=== PATIENT | female | born 1995 | race Two or more races ===

== ENCOUNTER 2024-07-25 10:21 | Outpatient (AMB) | payer BC, MEDICAID, SELFPAY ==
--- NOTE | 2024-07-25 10:29 | OBCLNT_ITS ---
Vital Signs 07/25/24 10:48 Height 1.68 m Height Method Stated Weight 76.771 kg Weight Measurement Method Standing Scale BMI 27.3 BP 116/70 Blood Pressure Source Automatic Cuff Blood Pressure Location Right Upper Arm Position Sitting Respiration 17 Pulse 81 Pulse Source Monitor Temp 97.7 F Temp Source Temporal Artery Scan Pulse Oximetry (%) 98 Oxygen Delivery Method Room Air Allergies/Home Meds Allergies & Medications Allergies No Known Allergies Allergy (Verified 07/25/24 10:41) Medication Reconciliation No Known Home Medications 07/25/24 [History Confirmed 07/25/24] Intake Visit Data Collection New Patient or Established: New Patient (never been to [facility]) Reason for Visit:: OBI / TRANSFER Seen by Clinical Staff ONLY (RN/MA): No Coal Inspector Required: No Do You Feel Safe at Home: Yes Authorities Contacted: N/A PCP or OBGYN visit in last 3 months: No Hx Now: Yes Are you currently on any form of Control: No Pain Present Currently: No Pain Scale Used: Thibodeaux-Mccormick/Numerical Pain scale:: 0 Smoking Status Smoking Status: Never smoker Questionnaires Covid-19 Vaccine Questionnaire Has patient been vacinated for Covid-19 Have you been vacinated for Covid-19: Yes PHQ-9 PHQ-2 Over the last 2 weeks, how often have you been bothered by any of the following problems? 1. Little interest or pleasure in doing things: not at all 2. Feeling down, depressed, or hopeless: not at all Total score: 0 PHQ-9 3. Trouble falling or staying asleep, or sleeping too much: Not at all 4. Feeling tired or having little energy: Not at all 5. Poor appetite or overeating: Not at all 6. Feeling bad about yourself - or that you are a failure or have let yourself or your family down: Not at all 7. Trouble concentrating on things, such as reading the newspaper or watching television: Not at all 8. Moving or speaking so slowly that other people could have noticed? - Or the opposite - being so fidgety or restless that you have been moving around a lot more than usual: not at all 9. Thoughts that you would be better off or of hurting yourself in some way: Not at all Total score: 0 If you checked off any problems, how difficult have these problems made it for you to do your work, take care of things at home, or get along with other people?: not difficult at all Source: Developed by Drs. Mk Teixeira, Mindi Herrera, Jeremie Wong and colleagues, with an educational alicia from [employer]. Depression screen completed yes Social History Living Situation History Marital Status: Single Lives With: Family Housing: House Tobacco History Smoking Status: Never smoker Second Hand Smoke Exposure: No Alcohol History Alcohol Intake: Never Domestic Abuse History Do You Feel Safe at Home: Yes History of Present Illness HPI Narrative 29-year-old 3 para 2 for OB transfer of care. Patient's been following Dr. Olsen at [facility]. Her last period December 25, 2023. Estimated due date September 30, 2024. First ultrasound was March 31 patient was 13 weeks and this confirmed dates. Then she had an anatomy scan in June that also confirm dates. Denies social habits. Denies surgery. Denies chronic illness. Patient reports movement. Denies leaking or bleeding. Patient is O+, antibody screen negative, RPR nonreactive, rubella immune, hepatitis B negative, hep C negative, HIV negative, GC and Chlamydia were both negative. Her hemoglobin A1c was 5.7. Her NIPT AFP and carrier screens were both negative. A1c is 5.7. And her 1 hour Glucola was 155 OB Initial Visit OB Flowsheet OB Flowsheet Initial Weight: Not Recorded Date -?-?-?-?-?-?-?-?-?-?-?-?- EGA Weight BP Alb Glu CTX Pres Fundal ht FHR Mov Dilation Station Effacement Hx Notes Visit Note 07/25/24 -?-?-?-?-?-?-?-?-?-?-?-?- 30w 3d 76.771 kg 116/70 absent cephalic 32 145 active 29-year-old 3 para 2 for OB transfer of care. 31 weeks 3 days today. Patient reports movement. Denies leaking or bleeding. Denies labor contractions. sono for growth NV, discuss ptl precaution. increase fluid. rtc 3 week obc Menstrual History Menstrual reliability: definite Flow: normal Menstrual regularity: regular Monthly: Yes Age at menarche: 11 On control pills at conception: No OB History : 5 Para: 2 Hx # Pregnancies: 0 Hx Total # of Abortions (Spontaneous & Elective): 2 # of Living Children: 2 Delivery History 1st : Child's name: NAOMI JACKSON date: 08/23/17 sex: female Gestational age at delivery (weeks): 41 Delivery type: vaginal weight (lbs): 3628.739 g weight (oz): 311.845 g History of depression before or after : No 2nd : Child's name: WILBER JACKSON date: 06/02/22 sex: female Gestational age at delivery (weeks): 40 Delivery type: vaginal weight (lbs): 3628.739 g weight (oz): 226.796 g History of depression before or after : No Infection History & Risk Evaluation History of STDs: none HIV risk evaluation: low risk Hepatitis B risk evaluation: low risk Patient or partner has history of Genital Herpes: No Varicella/chicken pox status: immunized Genetic Screening & History Genetic Screening/Teratology Counseling - Includes patient, baby's father, or anyone in either family with: 1. Patient's age 35 years or older as of estimated date of delivery: No 2. Thalassemia (Sri Lankan, Azeri, Mediterranean, or Background); MCV less than 80: No 3. Neural Tube Defect (Meningomyelocele, Spina Bifida, or Anencephaly): No 4. Congenital Heart Defect: No 5. Down Syndrome: No 6. Elmo-Sachs (Ashkenazi Oriental Orthodox, Cajun, Korean Mcdonald): No 7. Edagrdo Disease (Ashkenazi Oriental Orthodox): No 8. Familial Dysautonomia (Ashkenazi Oriental Orthodox): No 9. Sickle Cell Disease or Trait (): No 10. Hemophilia or other blood disorders: No 11. Muscular Dystrophy: No 12. Cystic Fibrosis: No 13. Bassem's Chorea: No 14. Mental Retardation/Autism: No 15. Other inherited genetic or chromosomal disorder: No 16. Maternal Metabolic Disorder (EG,TYPE 1 Diabetes, PKU): No 17. Patient or baby's father had a child with defects not listed above: No 18. Recurrent loss or a stillbirth: No 19. Medications (including supplements, vitamins, herbs or otc drugs)/illicit/ recreational drugs/alcohol since last menstrual period: No 20. Any other: No Infection History 1. Live with someone with TB or exposed to TB: No 2. Rash or viral illness since last menstrual period: No 3. Hepatitis B,C: No Other (see comments) Source: [employer] Review of Systems Review of Systems Systems Reviewed: All systems reviewed, normal except as documented Exam General Limitations: no limitations General Appearance: alert, in no apparent distress, comfortable, cooperative, healthy appearing, well developed and well groomed Head Head exam: atraumatic, normocephalic and normal inspection Chest Chest inspection: Present normal inspection and symmetric chest wall rise Resp Respiratory exam: Present normal lung sounds bilaterally Card Cardiovascular exam: Present regular rate, normal rhythm and normal heart sounds Abdominal Abdominal exam: Present soft and normal bowel sounds Psych Psychiatric exam: Present normal affect and normal mood Office Procedures OB Clinic LOC & Office Proc's Nursing/Assessment Patient Status: Initial/New Patient OB Clinic Nursing Assessment: Medication Reconciliation, Update PMH in EMR and Vital Signs OB Clinic Coordination of Care: Complex Care and Chronic Disease 1-5, Consent,records obtained, informed consent, Education Simp Pt/Fam, Lab and Imaging orders and Staff clarify orders Special Needs: Heart tones New Patient Charge New Patient Point Assignment: [id number] New Patient Point Charge: SUPPLY CHAIN LOGISTICS MANAGER Level 4 (9998-1139) Assessment & Plan Diagnosis / Problem List (1) Encounter for supervision of normal first , second trimester: Status: Acute Plan discuss ptl precaution, hydrate. f/u sono NV for growth. fkc bid. discuss ER precaution, rtc 3 week obc Additional Plan Follow Up: 3 Weeks (obc)
[2024-07-25 10:48] VITALS: BP 116/70; PULSE 81; RESP 17; TEMP 36.5; O2SAT 98; BMI 27.3
== END 2024-07-25 11:05 | disposition home or self-care (01) ==
LOC: HODSOBC 10:21
PROVIDERS: Supervising Provider Advanced Practice Midwife; Visit Provider Advanced Practice Midwife
DX: Z34.03 Encounter for supervision of normal first pregnancy, third trimester (principal); Z3A.30 30 weeks gestation of pregnancy
CPT/HCPCS: 99204; G0463

== ENCOUNTER 2024-08-18 09:47 | Outpatient (AMB) | payer BC, MEDICAID, SELFPAY ==
[2024-08-18 10:01] VITALS: BP 123/75; PULSE 87; RESP 17; TEMP 36.4; O2SAT 97; BMI 27.0
--- NOTE | 2024-08-18 10:01 | OBCLNT_ITS ---
Vital Signs 08/18/24 10:01 Height 1.68 m Height Method Stated Weight 76.317 kg Weight Measurement Method Standing Scale BMI 27.0 BP 123/75 Blood Pressure Source Automatic Cuff Blood Pressure Location Right Upper Arm Position Sitting Respiration 17 Pulse 87 Pulse Source Monitor Temp 97.5 F Temp Source Temporal Artery Scan Pulse Oximetry (%) 97 Oxygen Delivery Method Room Air Allergies/Home Meds Allergies & Medications Allergies No Known Allergies Allergy (Verified 08/18/24 10:01) Medication Reconciliation No Known Home Medications 07/25/24 [History Confirmed 08/18/24] Intake Visit Data Collection New Patient or Established: Established Patient (seen at [facility] within 3 years) Reason for Visit:: OBC Regional Account Director Required: No Do You Feel Safe at Home: Yes Authorities Contacted: N/A PCP or OBGYN visit in last 3 months: Yes Date of Last PCP or OBGYN visit: 07/25/24 Hx Now: No Are you currently on any form of Control: No Pain Present Currently: No Pain Scale Used: Thibodeaux-Mccormick/Numerical Pain scale:: 0 Smoking Status Smoking Status: Never smoker Questionnaires Covid-19 Vaccine Questionnaire Has patient been vacinated for Covid-19 Have you been vacinated for Covid-19: No PHQ-9 PHQ-2 Over the last 2 weeks, how often have you been bothered by any of the following problems? 1. Little interest or pleasure in doing things: not at all 2. Feeling down, depressed, or hopeless: not at all Total score: 0 PHQ-9 3. Trouble falling or staying asleep, or sleeping too much: Not at all 4. Feeling tired or having little energy: Not at all 5. Poor appetite or overeating: Not at all 6. Feeling bad about yourself - or that you are a failure or have let yourself or your family down: Not at all 7. Trouble concentrating on things, such as reading the newspaper or watching television: Not at all 8. Moving or speaking so slowly that other people could have noticed? - Or the opposite - being so fidgety or restless that you have been moving around a lot more than usual: not at all 9. Thoughts that you would be better off or of hurting yourself in some way: Not at all Total score: 0 If you checked off any problems, how difficult have these problems made it for you to do your work, take care of things at home, or get along with other people?: not difficult at all Source: Developed by Drs. Mk Teixeira, Mindi Herrera, Jeremie Wong and colleagues, with an educational alicia from [employer]. Depression screen completed yes Social History Living Situation History Marital Status: Lives With: Family Housing: House Tobacco History Smoking Status: Never smoker Second Hand Smoke Exposure: No Alcohol History Alcohol Intake: Never Domestic Abuse History Do You Feel Safe at Home: Yes Care OB Visit Log OB Flowsheet Initial Weight: Not Recorded Date -?-?-?-?-?-?-?-?-?-?-?-?- EGA Weight BP Alb Glu CTX Pres Fundal ht FHR Mov Dilation Station Effacement Hx Notes Visit Note 07/25/24 -?-?-?-?-?-?-?-?-?-?-?-?- 30w 3d 76.771 kg 116/70 absent cephalic 32 145 active 29-year-old 3 para 2 for OB transfer of care. 31 weeks 3 days today. Patient reports movement. Denies leaking or bleeding. Denies labor contractions. sono for growth NV, discuss ptl precaution. increase fluid. rtc 3 week obc 08/18/24 -?-?-?-?-?-?-?-?-?-?-?-?- 33w 6d 76.317 kg 123/75 absent cephalic 33 145 active fetus active, denies leaking,bleeding or UC, doing well discuss GDM diet. ptl precaution, increase fluid, fkc bid. rtc 2 week OBC, refused TDAP JOHNATHAN Calculator Estimated Delivery Date Method Current WG Current Estimate 09/30/24 LMP (Certain) 33w 6d Other Estimates 09/30/24 Ultrasound #1 33w 6d 09/25/24 Ultrasound #2 34w 4d Notes Visit Date: 08/18/24 Last Updated by: Lynn Moore CNM 1 hr gtt elevated, 3 hr gtt: 1 value high/gdm diet Visit Date: 07/25/24 Last Updated by: Lynn Moore CNM 29 yo LMP 12/24/24. EDC 09/30/24. sono 03/31/24:13wk, EDC 09/30/24. O+,abs-,rpr;;nr, rub imm, hbsag-, hiv-,HC-, GC/CT-. rub IMM, A1c: 5.7, Office Procedures OB Clinic LOC & Office Proc's Nursing/Assessment Patient Status: Established Patient OB Clinic Nursing Assessment: Medication Reconciliation, Update PMH in EMR and Vital Signs OB Clinic Coordination of Care: Complex Care and Chronic Disease 1-5, Consent,records obtained, informed consent, Education Simp Pt/Fam and Staff clarify orders Special Needs: Heart tones Established Patient Charge Established Patient Point Assignment: 115 Established Patient Point Charge: EP Level 3 (80-115) Assessment & Plan Diagnosis / Problem List (1) Encounter for supervision of normal in multigravida in third trimester: Status: Acute Plan Discussed 3-hour GTT results. Reviewed labor precautions. Patient has a follow-up maternal- medicine in September. I reviewed GDM diet and advised patient to continue with that to walk 40 minutes a day. Increase fluids. Return in 2 weeks OB check. Patient declined Tdap today Additional Plan Follow Up: 2 Weeks (obc)
== END 2024-08-18 10:27 | disposition home or self-care (01) ==
LOC: HODSOBC 09:47
PROVIDERS: Supervising Provider Advanced Practice Midwife; Visit Provider Advanced Practice Midwife
DX: O09.893 Supervision of other high risk pregnancies, third trimester (principal); O24.410 Gestational diabetes mellitus in pregnancy, diet controlled; Z3A.33 33 weeks gestation of pregnancy; Z28.21 Immunization not carried out because of patient refusal
CPT/HCPCS: 99213; G0463

== ENCOUNTER 2024-09-01 10:24 | Outpatient (AMB) | payer BC, MEDICAID, SELFPAY ==
[2024-09-01 10:54] VITALS: BP 122/81; PULSE 77; RESP 17; TEMP 36.7; O2SAT 96; BMI 27.7
--- NOTE | 2024-09-01 10:54 | OBCLNT_ITS ---
Vital Signs 09/01/24 10:54 Height 1.68 m Height Method Stated Weight 78.188 kg Weight Measurement Method Standing Scale BMI 27.7 BP 122/81 Blood Pressure Source Automatic Cuff Blood Pressure Location Right Upper Arm Position Sitting Respiration 17 Pulse 77 Pulse Source Monitor Temp 98.1 F Temp Source Temporal Artery Scan Pulse Oximetry (%) 96 Oxygen Delivery Method Room Air Allergies/Home Meds Allergies & Medications Allergies No Known Allergies Allergy (Verified 09/01/24 10:55) Medication Reconciliation No Known Home Medications 07/25/24 [History Confirmed 09/01/24] Intake Visit Data Collection New Patient or Established: Established Patient (seen at [facility] within 3 years) Reason for Visit:: OBC / GBS Seen by Clinical Staff ONLY (RN/MA): No Hydro Generation Supervisor Required: No Do You Feel Safe at Home: Yes Authorities Contacted: N/A PCP or OBGYN visit in last 3 months: Yes Date of Last PCP or OBGYN visit: 08/18/24 Hx Now: Yes Are you currently on any form of Control: No Pain Present Currently: No Pain Scale Used: Thibodeaux-Mccormick/Numerical Pain scale:: 0 Smoking Status Smoking Status: Never smoker Questionnaires Covid-19 Vaccine Questionnaire Has patient been vacinated for Covid-19 Have you been vacinated for Covid-19: Yes PHQ-9 PHQ-2 Over the last 2 weeks, how often have you been bothered by any of the following problems? 1. Little interest or pleasure in doing things: not at all 2. Feeling down, depressed, or hopeless: not at all Total score: 0 PHQ-9 3. Trouble falling or staying asleep, or sleeping too much: Not at all 4. Feeling tired or having little energy: Not at all 5. Poor appetite or overeating: Not at all 6. Feeling bad about yourself - or that you are a failure or have let yourself or your family down: Not at all 7. Trouble concentrating on things, such as reading the newspaper or watching television: Not at all 8. Moving or speaking so slowly that other people could have noticed? - Or the opposite - being so fidgety or restless that you have been moving around a lot more than usual: not at all 9. Thoughts that you would be better off or of hurting yourself in some way : Not at all Total score: 0 If you checked off any problems, how difficult have these problems made it for you to do your work, take care of things at home, or get along with other people?: not difficult at all Source: Developed by Drs. Mk Teixeira, Mindi Herrera, Jeremie Wong and colleagues, with an educational alicia from [employer]. Depression screen completed yes Social History Living Situation History Marital Status: Lives With: Family Housing: House Tobacco History Smoking Status: Never smoker Second Hand Smoke Exposure: No Alcohol History Alcohol Intake: Never Domestic Abuse History Do You Feel Safe at Home: Yes Care OB Visit Log OB Flowsheet Initial Weight: Not Recorded Date -?-?-?-?-?-?-?-?-?-?-?-?- EGA Weight BP Alb Glu CTX Pres Fundal ht FHR Mov Dilation Station Effacement Hx Notes Visit Note 07/25/24 -?-?-?-?-?-?-?-?-?-?-?-?- 30w 3d 76.771 kg 116/70 absent cephalic 32 145 active 29-year-old 3 para 2 for OB transfer of care. 31 weeks 3 days today. Patient reports movement. Denies leaking or bleeding. Denies labor contractions. sono for growth NV, discuss ptl precaution. increase fluid. rtc 3 week obc 08/18/24 -?-?-?-?-?-?-?-?-?-?-?-?- 33w 6d 76.317 kg 123/75 absent cephalic 33 145 active fetus active, denies leaking,bleeding or UC, doing well discuss GDM diet. ptl precaution, increase fluid, fkc bid. rtc 2 week OBC, refused TDAP 09/01/24 -?-?-?-?-?-?-?-?-?-?-?-?- 35w 6d 78.188 kg 122/81 occasional cephalic 35 145 active Reports movement. Denies leaking. Denies bleeding. Denies cough contractions. Increased pressure. No other OB complaints today. Continue GDM diet. Discussed labor precautions and kick counts twice a day. GBS today. Return in 1 week OB check JOHNATHAN Calculator Estimated Delivery Date Method Current WG Current Estimate 09/30/24 LMP (Certain) 35w 6d Other Estimates 09/30/24 Ultrasound #1 35w 6d 09/25/24 Ultrasound #2 36w 4d Notes Visit Date: 09/01/24 Last Updated by: Lynn Moore CNM 29 yo . LMP 12/24/24. EDC 09/30. 1s sono: 03/31/24: 13w6. edc: 09/30, 06/21: IUP 26w2. EDC: 09/30. ob panel: O+,abs-, rpr;;nr, rub imm, hbsag-,hiv-,hc-,gc/ct-, 1 hr high. 3 hr gtt: normal NIPT/AFP, carrier screen- Visit Date: 08/18/24 Last Updated by: Lynn Moore CNM 1 hr gtt elevated, 3 hr gtt: 1 value high/gdm diet Visit Date: 07/25/24 Last Updated by: Lynn Moore CNM 29 yo LMP 12/24/24. EDC 09/30/24. sono 03/31/24:13wk, EDC 09/30/24. O+,abs-,rpr;;nr, rub imm, hbsag-, hiv-,HC-, GC/CT-. rub IMM, A1c: 5.7, Office Procedures OB Clinic LOC & Office Proc's Nursing/Assessment Patient Status: Established Patient OB Clinic Nursing Assessment: Medication Reconciliation, Update PMH in EMR and Vital Signs OB Clinic Coordination of Care: Complex Care and Chronic Disease 1-5, Consent,records obtained, informed consent, Education Simp Pt/Fam, Lab and Imaging orders and Staff clarify orders Special Needs: Heart tones Established Patient Charge Established Patient Point Assignment: 130 Established Patient Point Charge: EP Level 4 (120-155) Assessment & Plan Diagnosis / Problem List (1) Encounter for supervision of normal in multigravida in third trimester: Status: Acute Plan GBS today. Discussed labor precautions. Discussed kick count twice a day. Continue GDM diet and exercise. Increase fluids. Continue vitamins. Return a week OB check Additional Plan Follow Up: 1 Week (obc)
== END 2024-09-01 11:20 | disposition home or self-care (01) ==
LOC: HODSOBC 10:24
PROVIDERS: Supervising Provider Advanced Practice Midwife; Visit Provider Advanced Practice Midwife
DX: Z34.83 Encounter for supervision of other normal pregnancy, third trimester (principal); Z3A.35 35 weeks gestation of pregnancy; Z36.85 Encounter for antenatal screening for Streptococcus B
CPT/HCPCS: 99214; G0463

== ENCOUNTER 2024-09-06 08:20 | Outpatient (AMB) | payer BC, MEDICAID, SELFPAY ==
[2024-09-06 08:36] VITALS: BP 113/72; PULSE 84; RESP 17; TEMP 36.6; O2SAT 97; BMI 28.1
--- NOTE | 2024-09-06 08:36 | OBCLNT_ITS ---
Vital Signs 09/06/24 08:36 Height 1.68 m Height Method Stated Weight 79.549 kg Weight Measurement Method Standing Scale BMI 28.1 BP 113/72 Blood Pressure Source Automatic Cuff Blood Pressure Location Right Upper Arm Position Sitting Respiration 17 Pulse 84 Pulse Source Monitor Temp 97.8 F Temp Source Temporal Artery Scan Pulse Oximetry (%) 97 Oxygen Delivery Method Room Air Allergies/Home Meds Allergies & Medications Allergies No Known Allergies Allergy (Verified 09/06/24 08:37) Medication Reconciliation No Known Home Medications 07/25/24 [History Confirmed 09/06/24] Intake Visit Data Collection New Patient or Established: Established Patient (seen at [facility] within 3 years) Reason for Visit:: OBC Seen by Clinical Staff ONLY (RN/MA): No Book Jacket Cover Machine Operator Required: No Do You Feel Safe at Home: Yes Authorities Contacted: N/A PCP or OBGYN visit in last 3 months: Yes Date of Last PCP or OBGYN visit: 09/01/24 Hx Now: Yes Are you currently on any form of Control: No Pain Present Currently: No Pain Scale Used: Thibodeaux-Mccormick/Numerical Pain scale:: 0 Smoking Status Smoking Status: Never smoker Questionnaires Covid-19 Vaccine Questionnaire Has patient been vacinated for Covid-19 Have you been vacinated for Covid-19: No PHQ-9 PHQ-2 Over the last 2 weeks, how often have you been bothered by any of the following problems? 1. Little interest or pleasure in doing things: not at all 2. Feeling down, depressed, or hopeless: not at all Total score: 0 PHQ-9 3. Trouble falling or staying asleep, or sleeping too much: Not at all 4. Feeling tired or having little energy: Not at all 5. Poor appetite or overeating: Not at all 6. Feeling bad about yourself - or that you are a failure or have let yourself or your family down: Not at all 7. Trouble concentrating on things, such as reading the newspaper or watching television: Not at all 8. Moving or speaking so slowly that other people could have noticed? - Or the opposite - being so fidgety or restless that you have been moving around a lot more than usual: not at all 9. Thoughts that you would be better off or of hurting yourself in some way: Not at all Total score: 0 If you checked off any problems, how difficult have these problems made it for you to do your work, take care of things at home, or get along with other people?: not difficult at all Source: Developed by Drs. Mk Teixeira, Mindi Herrera, Jeremie Wong and colleagues, with an educational alicia from [email or web address]. Depression screen completed yes Social History Living Situation History Marital Status: Lives With: Family Housing: House Tobacco History Smoking Status: Never smoker Second Hand Smoke Exposure: No Alcohol History Alcohol Intake: Never Domestic Abuse History Do You Feel Safe at Home: Yes Care OB Visit Log OB Flowsheet Initial Weight: Not Recorded Date -?-?-?-?-?-?-?-?-?-?-?-?- EGA Weight BP Alb Glu CTX Pres Fundal ht FHR Mov Dilation Station Effacement Hx Notes Visit Note 07/25/24 -?-?-?-?-?-?-?-?-?-?-?-?- 30w 3d 76.771 kg 116/70 absent cephalic 32 145 active 29-year-old 3 para 2 for OB transfer of care. 31 weeks 3 days today. Patient reports movement. Denies leaking or bleeding. Denies labor contractions. sono for growth NV, discuss ptl precaution. increase fluid. rtc 3 week obc 08/18/24 -?-?-?-?-?-?-?-?-?-?-?-?- 33w 6d 76.317 kg 123/75 absent cephalic 33 145 active fetus active, denies leaking,bleeding or UC, doing well discuss GDM diet. ptl precaution, increase fluid, fkc bid. rtc 2 week OBC, refused TDAP 09/01/24 -?-?-?-?-?-?-?-?-?-?-?-?- 35w 6d 78.188 kg 122/81 occasional cephalic 35 145 active Reports movement. Denies leaking. Denies bleeding. Denies cough contractions. Increased pressure. No other OB complaints today. Continue GDM diet. Discussed labor precautions and kick counts twice a day. GBS today. Return in 1 week OB check 09/06/24 -?-?-?-?-?-?-?-?-?-?-?-?- 36w 4d 79.549 kg 113/72 occasional cephalic 36 145 active Increased pressure. Baby active. Denies leaking. Denies bleeding. Denies contractions. Like for precaut ions discussed with patient. Comfort measures were present. Reviewed kick count twice daily. Discussed danger signs symptoms signs of ER precautions. Return week OB check JOHNATHAN Calculator Estimated Delivery Date Method Current WG Current Estimate 09/30/24 LMP (Certain) 36w 4d Other Estimates 09/30/24 Ultrasound #1 36w 4d 09/25/24 Ultrasound #2 37w 2d Notes Visit Date: 09/06/24 Last Updated by: Lynn Moore CNM GBS- 09/06/24 Visit Date: 09/01/24 Last Updated by: Lynn Moore CNM 29 yo . LMP 12/24/24. EDC 09/30. 1s sono: 03/31/24: 13w6. edc: 09/30, 06/21: IUP 26w2. EDC: 09/30. ob panel: O+,abs-, rpr;;nr, rub imm, hbsag-,hiv-,hc-,gc/ct-, 1 hr high. 3 hr gtt: normal NIPT/AFP, carrier screen- Visit Date: 08/18/24 Last Updated by: Lynn Moore CNM 1 hr gtt elevated, 3 hr gtt: 1 value high/gdm diet Visit Date: 07/25/24 Last Updated by: Lynn Moore CNM 29 yo LMP 12/24/24. EDC 09/30/24. sono 03/31/24:13wk, EDC 09/30/24. O+,abs-,rpr;;nr, rub imm, hbsag-, hiv-,HC-, GC/CT-. rub IMM, A1c: 5.7, Office Procedures OB Clinic LOC & Office Proc's Nursing/Assessment Patient Status: Established Patient OB Clinic Nursing Assessment: Medication Reconciliation, Update PMH in EMR and Vital Signs OB Clinic Coordination of Care: Complex Care and Chronic Disease 1-5, Consent,records obtained, informed consent, Education Simp Pt/Fam and Staff clarify orders Special Needs: Heart tones Established Patient Charge Established Patient Point Assignment: 115 Established Patient Point Charge: EP Level 3 (80-115) Assessment & Plan Diagnosis / Problem List (1) Encounter for supervision of normal in multigravida in third trimester: Status: Acute Plan Discussed labor precautions. Kick count twice daily. Discussed danger signs symptoms and ER precautions. Return in a week OB check Additional Plan Follow Up: 1 Week (obc)
== END 2024-09-06 08:57 | disposition home or self-care (01) ==
LOC: HODSOBC 08:20
PROVIDERS: Supervising Provider Advanced Practice Midwife; Visit Provider Advanced Practice Midwife
DX: Z34.83 Encounter for supervision of other normal pregnancy, third trimester (principal); Z3A.36 36 weeks gestation of pregnancy
CPT/HCPCS: 99213; G0463

== ENCOUNTER 2024-09-14 08:53 | Outpatient (AMB) | payer BC, MEDICAID, SELFPAY ==
[2024-09-14 09:09] VITALS: BP 132/80; PULSE 74; RESP 17; TEMP 36.5; O2SAT 97; BMI 28.5
--- NOTE | 2024-09-14 09:09 | OBCLNT_ITS ---
Vital Signs 09/14/24 09:09 Height 1.68 m Height Method Measured Weight 80.739 kg Weight Measurement Method Standing Scale BMI 28.5 BP 132/80 H Blood Pressure Source Automatic Cuff Blood Pressure Location Right Upper Arm Position Sitting Respiration 17 Pulse 74 Pulse Source Monitor Temp 97.7 F Temp Source Temporal Artery Scan Pulse Oximetry (%) 97 Oxygen Delivery Method Room Air Allergies/Home Meds Allergies & Medications Allergies No Known Allergies Allergy (Verified 09/14/24 09:10) Medication Reconciliation No Known Home Medications 07/25/24 [History Confirmed 09/14/24] Intake Visit Data Collection New Patient or Established: Established Patient (seen at [facility] within 3 years) Reason for Visit:: OBC Consent obtained for Telemed Visit: No Seen by Clinical Staff ONLY (RN/MA): No Hydro Plant Operator Required: No Do You Feel Safe at Home: Yes Authorities Contacted: N/A PCP or OBGYN visit in last 3 months: Yes Date of Last PCP or OBGYN visit: 09/06/24 Hx Now: Yes Are you currently on any form of Control: No Pain Present Currently: No Pain Scale Used: Thibodeaux-Mccormick/Numerical Pain scale:: 0 Smoking Status Smoking Status: Never smoker Questionnaires Covid-19 Vaccine Questionnaire Has patient been vacinated for Covid-19 Have you been vacinated for Covid-19: No PHQ-9 PHQ-2 Over the last 2 weeks, how often have you been bothered by any of the following problems? 1. Little interest or pleasure in doing things: not at all PHQ-9 8. Moving or speaking so slowly that other people could have noticed? - Or the opposite - being so fidgety or restless that you have been moving around a lot more than usual: not at all Source: Developed by Drs. Mk Teixeira, Mindi Herrera, Jeermie Wong and colleagues, with an educational alicia from [employer]. Social History Living Situation History Lives With: Family Housing: House Tobacco History Smoking Status: Never smoker Second Hand Smoke Exposure: No Alcohol History Alcohol Intake: Never Domestic Abuse History Do You Feel Safe at Home: Yes Care OB Visit Log OB Flowsheet Initial Weight: Not Recorded Date -?-?-?-?-?-?-?-?-?-?-?-?- EGA Weight BP Alb Glu CTX Pres Fundal ht FHR Mov Dilation Station Effacement Hx Notes Visit Note 07/25/24 -?-?--?-?-?-?-?-?-?-?-?-?- 30w 3d 76.771 kg 116/70 absent cephalic 32 145 active 29-year-old 3 para 2 for OB transfer of care. 31 weeks 3 days today. Patient reports movement. Denies leaking or bleeding. Denies labor contractions. sono for growth NV, discuss ptl precaution. increase fluid. rtc 3 week obc 08/18/24 -?--?-?-?-?-?-?-?-?-?-?-?- 33w 6d 76.317 kg 123/75 absent cephalic 33 145 active fetus active, denies leaking,bleeding or UC, doing well discuss GDM diet. ptl precaution, increase fluid, fkc bid. rtc 2 week OBC, refused TDAP 09/01/24 -?-?-?-?-?-?-?-?-?-?-?-?- 35w 6d 78.188 kg 122/81 occasional cephalic 35 145 active Reports movement. Denies leaking. Denies bleeding. Denies cough contractions. Increased pressure. No other OB complaints today. Continue GDM diet. Discussed labor precautions and kick counts twice a day. GBS today. Return in 1 week OB check 09/06/24 -?-?-?-?-?-?-?-?-?-?-?-?- 36w 4d 79.549 kg 113/72 occasional cephalic 36 145 active Increased pressure. Baby active. Denies leaking. Denies bleeding. Denies contractions. Like for precaut ions discussed with patient. Comfort measures were present. Rubia fernandez kick count twice daily. Discussed danger signs symptoms signs of ER precautions. Return week OB check 09/14/24 -?-?-?-?-?-?-?-?-?-?-?-?- 37w 5d 80.739 kg 132/80 occasional cephalic 37 147 active 1 -3 25 increased presure and mucous with some bleeding, fetus active, denies leaking or. irreg uc discuss labor pr ecaution, fkc bid. comfort measure and ER precaution JOHNATHAN Calculator Estimated Delivery Date Method Current WG Current Estimate 09/30/24 LMP (Certain) 37w 5d Other Estimates 09/30/24 Ultrasound #1 37w 5d 09/25/24 Ultrasound #2 38w 3d Notes Visit Date: 09/14/24 Last Updated by: Lynn Moore CNM 29 yo LMP 12/24/20, EDC: 09/30/24, O+,abs-,rpr;;nr, rub imm, hbsag-,hiv-,HC-, gc/ct-, GBS-, carrier screen and NIPT- Visit Date: 09/06/24 Last Updated by: Lynn Moore CNM GBS- 09/06/24 Visit Date: 09/01/24 Last Updated by: Lynn Moore CNM 29 yo . LMP 12/24/24. EDC 09/30. 1s sono: 03/31/24: 13w6. edc: 09/30, 06/21: IUP 26w2. EDC: 09/30. ob panel: O+,abs-, rpr;;nr, rub imm, hbsag-,hiv-,hc-,gc/ct-, 1 hr high. 3 hr gtt: normal NIPT/AFP, carrier screen- Visit Date: 08/18/24 Last Updated by: Lynn Moore CNM 1 hr gtt elevated, 3 hr gtt: 1 value high/gdm diet Visit Date: 07/25/24 Last Updated by: Lynn Moore CNM 29 yo LMP 12/24/24. EDC 09/30/24. sono 03/31/24:13wk, EDC 09/30/24. O+,abs-,rpr;;nr, rub imm, hbsag-, hiv-,HC-, GC/CT-. rub IMM, A1c: 5.7, Office Procedures OB Clinic LOC & Office Proc's Nursing/Assessment Patient Status: Established Patient OB Clinic Nursing Assessment: Medication Reconciliation, Update PMH in EMR and Vital Signs OB Clinic Coordination of Care: Complex Care and Chronic Disease 1-5, Consent,records obtained, informed consent, Education Simp Pt/Fam and 4+ Authorizations needed Special Needs: Heart tones Established Patient Charge Established Patient Point Assignment: 130 Established Patient Point Charge: EP Level 4 (120-155) Assessment & Plan Diagnosis / Problem List (1) Encounter for supervision of normal in multigravida in third trimester: Status: Acute Plan discuss labor precaution, fkc bid. discuss ER precaution, increase fluid. rtc 1 week obc Additional Plan Follow Up: 1 Week (obc)
== END 2024-09-14 09:35 | disposition home or self-care (01) ==
LOC: HODSOBC 08:53
PROVIDERS: Supervising Provider Advanced Practice Midwife; Visit Provider Advanced Practice Midwife
DX: Z34.83 Encounter for supervision of other normal pregnancy, third trimester (principal); Z3A.37 37 weeks gestation of pregnancy
CPT/HCPCS: 99214; G0463

== ENCOUNTER 2024-09-30 12:55 | Outpatient (AMB) | payer BC, MEDICAID, SELFPAY ==
[2024-09-30 13:11] VITALS: BP 138/81; PULSE 82; RESP 17; TEMP 36.6; O2SAT 97; BMI 29.5
--- NOTE | 2024-09-30 13:11 | OBCLNT_ITS ---
Vital Signs 09/30/24 13:11 Height 1.68 m Height Method Measured Weight 83.178 kg Weight Measurement Method Standing Scale BMI 29.5 BP 138/81 H Blood Pressure Source Automatic Cuff Blood Pressure Location Right Upper Arm Position Sitting Respiration 17 Pulse 82 Pulse Source Monitor Temp 97.8 F Temp Source Temporal Artery Scan Pulse Oximetry (%) 97 Oxygen Delivery Method Room Air Allergies/Home Meds Allergies & Medications Allergies No Known Allergies Allergy (Verified 09/30/24 13:12) Medication Reconciliation No Known Home Medications 07/25/24 [History Confirmed 09/30/24] Intake Visit Data Collection New Patient or Established: Established Patient (seen at [facility] within 3 years) Reason for Visit:: OBC Consent obtained for Telemed Visit: No Seen by Clinical Staff ONLY (RN/MA): No Doweling Machine Operator Required: No Do You Feel Safe at Home: Yes Authorities Contacted: N/A PCP or OBGYN visit in last 3 months: Yes Date of Last PCP or OBGYN visit: 09/14/24 Hx Now: Yes Are you currently on any form of Control: No Pain Present Currently: No Pain Scale Used: Thibodeaux-Mccormick/Numerical Pain scale:: 0 Smoking Status Smoking Status: Never smoker Questionnaires Covid-19 Vaccine Questionnaire Has patient been vacinated for Covid-19 Have you been vacinated for Covid-19: No PHQ-9 PHQ-2 Over the last 2 weeks, how often have you been bothered by any of the following problems? 1. Little interest or pleasure in doing things: not at all PHQ-9 8. Moving or speaking so slowly that other people could have noticed? - Or the opposite - being so fidgety or restless that you have been moving around a lot more than usual: not at all Source: Developed by Drs. Mk Teixeira, Mindi Herrera, Jeremie Wong and colleagues, with an educational alicia from [employer]. Social History Living Situation History Lives With: Family Housing: House Tobacco History Smoking Status: Never smoker Second Hand Smoke Exposure: No Alcohol History Alcohol Intake: Never Domestic Abuse History Do You Feel Safe at Home: Yes Care OB Visit Log OB Flowsheet Initial Weight: Not Recorded Date -?-?-?-?-?-?-?-?-?-?-?-?- EGA Weight BP Alb Glu CTX Pres Fundal ht FHR Mov Dilation Station Effacement Hx Notes Visit Note 07/25/24 -?-?--?-?-?-?-?-?-?-?-?-?- 30w 3d 76.771 kg 116/70 absent cephalic 32 145 active 29-year-old 3 para 2 for OB transfer of care. 31 weeks 3 days today. Patient reports movement. Denies leaking or bleeding. Denies labor contractions. sono for growth NV, discuss ptl precaution. increase fluid. rtc 3 week obc 08/18/24 -?--?-?-?-?-?-?-?-?-?-?-?- 33w 6d 76.317 kg 123/75 absent cephalic 33 145 active fetus active, denies leaking,bleeding or UC, doing well discuss GDM diet. ptl precaution, increase fluid, fkc bid. rtc 2 week OBC, refused TDAP 09/01/24 -?-?-?-?-?-?-?-?-?-?-?-?- 35w 6d 78.188 kg 122/81 occasional cephalic 35 145 active Reports movement. Denies leaking. Denies bleeding. Denies cough contractions. Increased pressure. No other OB complaints today. Continue GDM diet. Discussed labor precautions and kick counts twice a day. GBS today. Return in 1 week OB check 09/06/24 -?-?-?-?-?-?-?-?-?-?-?-?- 36w 4d 79.549 kg 113/72 occasional cephalic 36 145 active Increased pressure. Baby active. Denies leaking. Denies bleeding. Denies contractions. Like for precaut ions discussed with patient. Comfort measures were present. Rubia fernandez kick count twice daily. Discussed danger signs symptoms signs of ER precautions. Return week OB check 09/14/24 -?-?-?-?-?-?-?-?-?-?-?-?- 37w 5d 80.739 kg 132/80 occasional cephalic 37 147 active 1 -3 25 increased presure and mucous with some bleeding, fetus active, denies leaking or. irreg uc discuss labor pr ecaution, fkc bid. comfort measure and ER precaution 09/30/24 -?-?-?-?-?-?-?-?-?-?-?-?- 40w 0d 83.178 kg 138/81 occasional cephalic 39 145 active 3 -3 70 Increased pressure. Increased contractions. Reports good movement. Denies leaking or bleeding. She had a slight headache yesterday. sve: soft/3/post/-3 Discussed labor precautions. Discussed PIH precautions. Kick count twice a day. Sent patient over to labor and delivery for PIH eval and will schedule induction. Reviewed ER precautions with patient JOHNATHAN Calculator Estimated Delivery Date Method Current WG Current Estimate 09/30/24 LMP (Certain) 40w 0d Other Estimates 09/30/24 Ultrasound #1 40w 0d 09/25/24 Ultrasound #2 40w 5d Notes Visit Date: 09/14/24 Last Updated by: Lynn Moore CNM 29 yo LMP 12/24/20, EDC: 09/30/24, O+,abs-,rpr;;nr, rub imm, hbsag-,hiv-,HC-, gc/ct-, GBS-, carrier screen and NIPT- Visit Date: 09/06/24 Last Updated by: Lynn Moore CNM GBS- 09/06/24 Visit Date: 09/01/24 Last Updated by: Lynn Moore CNM 29 yo . LMP 12/24/24. EDC 09/30. 1s sono: 03/31/24: 13w6. edc: 09/30, 06/21: IUP 26w2. EDC: 09/30. ob panel: O+,abs-, rpr;;nr, rub imm, hbsag-,hiv-,hc-,gc/ct-, 1 hr high. 3 hr gtt: normal NIPT/AFP, carrier screen- Visit Date: 08/18/24 Last Updated by: Lynn Moore CNM 1 hr gtt elevated, 3 hr gtt: 1 value high/gdm diet Visit Date: 07/25/24 Last Updated by: Lynn Moore CNM 29 yo LMP 12/24/24. EDC 09/30/24. sono 03/31/24:13wk, EDC 09/30/24. O+,abs-,rpr;;nr, rub imm, hbsag-, hiv-,HC-, GC/CT-. rub IMM, A1c: 5.7, Office Procedures OB Clinic LOC & Office Proc's Nursing/Assessment Patient Status: Established Patient OB Clinic Nursing Assessment: Medication Reconciliation, Update PMH in EMR and Vital Signs OB Clinic Coordination of Care: Complex Care and Chronic Disease 1-5, Education Complex Pt/Fam and Consent,records obtained, informed consent Special Needs: Heart tones Miscellaneous Interventions: Blood/Urine Collection Established Patient Charge Established Patient Point Assignment: 140 Established Patient Point Charge: EP Level 3 (80-115) Assessment & Plan Diagnosis / Problem List (1) Encounter for supervision of normal in multigravida in third trimester: Status: Acute Plan Discussed labor cautions patient. Discussed ER precautions and parameters. Kick count twice a day. Patient sent to labor and delivery for PIH eval and labor eval. We will schedule for induction. Return a week OB check Additional Plan Follow Up: 1 Week (obc)
== END 2024-09-30 13:36 | disposition home or self-care (01) ==
LOC: HODSOBC 12:55
PROVIDERS: Supervising Provider Advanced Practice Midwife; Visit Provider Advanced Practice Midwife
DX: Z34.83 Encounter for supervision of other normal pregnancy, third trimester (principal); Z3A.40 40 weeks gestation of pregnancy
CPT/HCPCS: 99213; G0463

== ENCOUNTER 2024-09-30 14:39 | Inpatient (IN) | payer BC, MEDICAID, SELFPAY ==
[2024-09-30] VITALS (61 sets, daily range): BP systolic 101–137; BP diastolic 55–84; PULSE 58–84; RESP 16–98; TEMP 36.9; O2SAT 94–100; BMI 28.7
--- NOTE | 2024-09-30 14:43 | XR_ITS ---
Examination: Complete OB ultrasound greater than 14 weeks Date and time of exam: September 30, 2024 1410 hours INDICATIONS: Labor evaluation, post dates, leg swelling today Findings: Viable intrauterine single fetus with single amniotic sac presentation cephalic spine maternal left Cardiac motion 157 BPM Placenta fundal grade 3 Umbilical cord insertion seen Amniotic fluid index 5.5 cm Cervix 3.6 cm Ovaries obscured by the fetus Bilateral mild hydronephrosis Composite estimated gestational age based on BPD, head circumference, abdominal circumference, femur length is 38 weeks 5 days Estimated weight 3430 g. Survey of intracranial anatomy, spinal anatomy, abdominal anatomy, four-chamber heart performed with no abnormalities identified. Impression: Viable intrauterine gestation cephalic presentation Estimated gestational age 38 weeks 5 days.
--- NOTE | 2024-09-30 14:43 | XR_ITS ---
Examination: Biophysical profile, ultrasound Date and time of exam: September 30, 2024 1532 hours INDICATIONS: Labor evaluation today, -induced hypertension, leg swelling today Technique: Multiple transabdominal sonographic images of the pelvis abdomen obtained. Attention is directed to the breathing movement, gross body movement, amniotic fluid volume and tone. Findings: Amniotic fluid index 6.1 cm Total biophysical profile is 8 of 8. breathing movement is 2. Gross body movement is 2. tone is 2. Qualitative amniotic fluid volume is 2 Impression: Biophysical profile is 8 of 8.
[2024-09-30 15:40] LABS: Collection Type, Urine Clean Catch
[2024-09-30 15:44] LABS: Basophils # (Auto) 0.0 Thou/mm3 (0.0-0.2); Basophils % (Auto) 1 % (0-2.5); Eosinophils # (Auto) 0.1 Thou/mm3 (0.0-0.5); Eosinophils % (Auto) 1 % (0-10); Hematocrit 36.5 % (36.0-46.0); Hemoglobin 11.8 g/dL (12.0-16.0); Immature Granulocytes Auto 0.24 Thou/mm3 (0.00-0.00); Lymphocytes # (Auto) 1.8 Thou/mm3 (1.0-4.8); Lymphocytes % (Auto) 27 % (10-50); Mean Corpuscular HGB Conc 32.3 g/dl (31.0-37.0); Mean Corpuscular Hemoglobin 27.7 pg (25.0-35.0); Mean Corpuscular Volume 86 fL (80-100); Monocytes # (Auto) 0.7 Thou/mm3 (0.0-0.8); Monocytes % (Auto) 11 % (0-12); Neutrophils # (Auto) 3.8 Thou/mm3 (1.8-7.7); Neutrophils % (Auto) 58 % (37-80); Nucleated Red Blood Cell # 0.00 Thou/mm3 (0.00-0.00); Nucleated Red Blood Cell % 0 /100 WBC (0); Platelet Count 151 Thou/mm3 (140-440); RDW Standard Deviation 47.4 fL (36.4-46.3); Red Blood Count 4.26 Miln/mm3 (4.00-5.20); White Blood Count 6.7 Thou/mm3 (3.6-11.0)
[2024-09-30 16:12] LABS: Bacteria,Urine Rare; Bilirubin,Urine Negative (Negative); Blood,Urine Negative (Negative); Clarity,Urine Clear (Clear/Hazy); Color,Urine Lt-Yellow (Lt Yel-Yel); Glucose, Urine Negative (Negative); Ketones,Urine Negative (Negative); Leukocyte Esterase,Urine Positive (Negative); Nitrite,Urine Negative (Negative); PH,Urine 6.5 (5.0-7.0); Protein,Urine Trace (Neg - Trace); RBC,Urine 11 /hpf (0-3); Specific Gravity,Urine 1.025 (1.001-1.035); Squamous Epithelial Cell,Urine 10 /hpf (0-5); Urobilinogen,Urine Negative mg/dL (0.0-1.0); WBC,Urine 8 /hpf (0-5)
[2024-09-30 16:22] LABS: Alanine Aminotransferase 11 U/L (10-49); Albumin, Serum 3.6 gm/dL (3.5-5.0); Albumin/Globulin Ratio 1.5 (1.2-2.2); Alkaline Phosphatase 210 U/L (46-116); Anion Gap 12 (7-16); Aspartate Amino Transferase 19 U/L (0-34); BUN/Creatinine Ratio 11 Ratio (12-20); Bilirubin,Total 0.3 mg/dL (0.3-1.2); Blood Urea Nitrogen 8 mg/dL (9-23); Calcium 8.9 mg/dL (8.3-10.6); Calcium (Corrected) 9.2 mg/dL (8.5-10.1); Carbon Dioxide 21.4 mMol/L (20.0-31.0); Chloride 107 mMol/L (98-107); Creatinine (Component) 0.7 mg/dL (0.6-1.3); Globulin 2.4 gm/dL (2.3-3.5); Glucose 85 mg/dL (74-106); Osmolality,Calculated 276 (275-295); Potassium 3.8 mMol/L (3.4-5.1); Sodium 140 mMol/L (136-145); Total Protein 6.0 gm/dL (5.7-8.2); Uric Acid 4.3 mg/dL (3.1-7.8); eGFR > 60 See Note
[2024-09-30 16:24] LABS: Fibrinogen 389 mg/dL (175-375); INR 0.9 (0.9-1.3); Partial Thromboplastin Time 27.1 Seconds (22.0-36.0); Prothrombin Time 10.0 Seconds (9.0-12.2)
[2024-09-30 16:27] LABS: Syphilis Nonreactive (Nonreactive)
[2024-09-30 16:33] LABS: Creatinine,Random Urine 131 mg/dL (30-125); Protein Total, Random Urine 28 mg/dL (1-14)
[2024-09-30 16:35] LABS: LDH (Lactate Dehydrogenase) 255 U/L (120-246)
[2024-09-30] MEDS: RINGERS LACTATED 1000 ML 1,000 ML 100 ML IV (22:24)
[2024-10-01] VITALS (37 sets, daily range): BP systolic 108–150; BP diastolic 54–92; PULSE 62–109; RESP 16–18; TEMP 36.7–37.2; O2SAT 96–99
[2024-10-01] MEDS: RINGERS LACTATED 1000 ML 1,000 ML 100 ML IV (00:13)
--- NOTE | 2024-10-01 00:42 | ESHP_ITS ---
Documentation for date of: 10/01/24 OB Labor/Induct. HPI History of Present Illness Chief complaint: induction : 5 Para: 2 Term pregnancies: 2 pregnancies: 0 Living children: 2 History of Abortions: Spontaneous and Elective: 2 History of Vaginal deliveries: 2 History of sections: No History of : No Date of last menstrual period: 12/25/23 JOHNATHAN: 09/30/24 Gestational Age (weeks): 40 Gestational Age (days): 0 Gestational age based on last menstrual period: 40 Indication for induction: other History of present illness: 29-year-old 5 para 2 for induction of labor. Patient is been followed with Dr. Olsen at [facility]. She then transferred to [facility] OB clinic at 30 weeks. She has not had any problems with . Patient is O+, antibody screen negative, RPR nonreactive, rubella immune, hepatitis B negative, hep C negative, HIV negative, GC and Chlamydia were negative. Patient had an abnormal 1 hour GTT and 3-hour was normal. And GBS is negative. Blood pressures were high in the clinic today so patient was sent to labor and delivery for PIH workup. Blood pressures were improved in labor and delivery however patient lives more than 40 minutes from the hospital and so she was kept for induction. Denies social habits. Denies surgery. Denies chronic health History of Present Dating criteria: LMP confirmed by 1st trimester US Adequate Care: Yes Ultrasounds: normal 1st trimester US and normal mid trimester US Obstetrical complications: none Medical complications: none Labs Labs: Negative: RPR, Hepatitis B, HIV, Chlamydia, Gonorrhea and Group Beta Strep and Unknown: Covid-19 Review of Systems Review of Systems Systems Reviewed: All systems reviewed, normal except as documented Past Medical History Surgical History SURGICAL: Negative Section Meds Home Medications and Allergies Home Medications ?Medication ?Instructions ?Recorded ?Confirmed ?Type No Known Home Medications 07/25/2409/10 History Allergies Allergy/AdvReac Type Severity Reaction Status Date / Time No Known Allergies Allergy Verified 09/30/24 13:12 OB Exam Physical Exam Vital signs: Temp Pulse Resp BP Pulse Ox 98.5 F 83 16 129/75 98 09/30/24 14:39 10/01/24 00:42 09/30/24 14:39 10/01/24 00:42 09/30/24 18:57 Narrative: Alert and oriented. Normal heart rate and rhythm. Lungs clear no wheezes. Gravid abdomen. Gynecoid pelvis. Estimated weight 3400 g. Patient is vertex by sono today. Vaginal exam on admission was soft, posterior, 3 cm, vertex -3. Bag water intact. Occasional contraction and heart rate is category 1 with accelerations moderate regular Detailed Labor and Delivery Exam Dilation (cm): 3 Effacement (%): 70 Cervix position: posterior station: -3 Consistency: soft Presentation: Vertex Cervical ripeness score: 7 Membranes: intact Baseline heart rate: 134 monitor accelerations: 15x15 monitor decelerations: None intermodal dispatcher variability: Moderate (11-25) Contraction frequency (min): occ Contraction duration (sec): 40 Tachysystole: No Contraction intensity: Mild OB Results Labs 09/30/24 15:10 09/30/24 15:10 Labs: Short CBC 09/30/24 Range/Units 15:10 WBC 6.7 (3.6-11.0) Thou/mm3 Hgb 11.8 L (12.0-16.0) g/dL Hct 36.5 (36.0-46.0) % Plt Count 151 (140-440) Thou/mm3 BMP 09/30/24 15:10 Sodium 140 Potassium 3.8 Chloride 107 Carbon Dioxide 21.4 BUN 8 L Creatinine 0.7 Glucose 85 Calcium 8.9 Liver Function 09/30/24 Range/Units 15:10 Total Bilirubin 0.3 (0.3-1.2) mg/dL AST 19 (0-34) U/L ALT 11 (10-49) U/L Alkaline Phosphatase 210 H (46-116) U/L Albumin 3.6 (3.5-5.0) gm/dL Urine 09/30/24 Range/Units 15:10 Urine Color Lt-Yellow (Lt Yel-Yel) Urine Clarity Clear (Clear/Hazy) Urine pH 6.5 (5.0-7.0) Ur Specific [place] 1.025 (1.001-1.035) Urine Protein Trace (Neg - Trace) Urine Glucose (UA) Negative (Negative) OB Assessment & Plan Assessment and Plan (1) Normal labor and delivery: Status: Acute Additional Plan Induction method: per misoprostol protocol Plan: induction, anticipate NVD and consult MD bateman
[2024-10-01] MEDS: OXYTOCIN INJ 10 UNIT/ML VIAL IM (01:36)
[2024-10-01] MEDS: BENZO/LANO/ALOE (Dermoplast) 60 GM CAN 1 SPRAY TOP (01:37)
[2024-10-01] MEDS: OXYTOCIN in NS 20 units 20 UNIT/1,000 ML BAG 125 UNIT IV (01:38)
--- NOTE | 2024-10-01 02:01 | PD.LDDELS ---
Data (Crews) Data Hx Section: No : 5 Term: 2 : 0 Livin Abortions: Spontaneous & Theraputic: 2 Delivery Data (Crews) Labor Data Initiation of labor: Induction Induction/Augmentation Agent: Cytotec-PO ROM date: 10/01/24 ROM time: 01:16 Amniotic membrane rupture type: Artificial Amniotic fluid description: Clear Delivery Data EDC: 09/30/24 EDC calculated by:: LMP/early US confirmation Date of arrival to unit: 09/30/24 Time of arrival to unit: 17:01 Onset of labor date: 09/30/24 Onset of labor time: 23:19 Complete dilation date: 10/01/24 Complete dilation time: 01:19 [place] delivery date: 10/01/24 [place] delivery time: :28 Gestational age (weeks): 40 Gestational age (days): 0 Placenta delivery date: 10/01/24 Placenta delivery time: 01:28 Stage 1 total time: Labor - Stage 1 Duration 2 hours and 0 minutes Delivered by: Celestino CLIFTON Delivery nurse: Josefa Hunter nurse: Prince BERRY RN Practical Nurse Clinical Coordinator at delivery: No Support person(s) at delivery: FATHER OF BABY Other staff at delivery: JOE RT Delivery Method Delivery method: Normal Vaginal Delivery Presentation: Vertex position: OA Anesthesia Type Anesthesia Type: Epidural Delivery Room Medications Delivery room medications: Pitocin 10 u IM, Pitocin 20 u IV and Cytotec 800 TX Placenta Placenta delivery description: Spontaneous Cord blood sent to lab: Yes cord blood collection: Cord Blood Type Episiotomy Episiotomy description: None Lacerations #1: Labial: R labia Perineal repair Sutures used for repair: 3.0 Vicryl EBL Estimated blood loss (ml): 400 Umbilical Cord cord description: 3 Vessels and Nuchal Cord (x1 loose) Data (Crews) [place] Data order: 1 [place]'s gender: Male Identification band number: [id number] weight (gms): 3615 g Weight (pounds): 7 lbs and 15.5 ozs length: 50.17 cm 1 minute: 9 5 minutes: 9
[2024-10-01] MEDS: TRANEXAMIC ACID 1,000 MG IVPB 1,000 MG/100 ML BAG 200 MG IV (02:06)
--- NOTE | 2024-10-01 04:36 | PC.NURSE ---
0345: RN AT BEDSIDE TO ASSIST PATIENT TO AMBULATE TO BR. PATIENT STATES HER LEGS AND STILL VERY NUMB ESPECIALLY HER RIGHT LEG. PATIENT UNABLE TO LIFT LEG OFF BED UNSUPPORTED. PATEINT STATES SHE IS GETTING FEELING AND SENDATION BACK TO HER LEGS SLOWLY BUT STATES HER RIGHT LEG IS STILL VERY NUMB. PATIENT PLACED ON BEDPAN AND ENCOURAGED TO VOID. 0355: PATIENT UNABLE TO VOID IN BEDPAN. PERICARE DONE. PATIENT TRANSFERED TO WHEELCHAIR AND MOVED TO ROOM 470. PATIENT INSTRUCTED TO CALL NURSE WHEN SHE NEED TO USE THE BATHROOM. PATIENT GIVEN INSTRUCTIONS TO NOT GET OUT OF BED ALONE FOR SAFETY REASONS. PATIENT VERBALIZES UNDERSTANDING AND STATES SHE WILL CALL OUT FOR HELP WHEN SHE NEED TO GET UP.
[2024-10-01] MEDS: IBUPROFEN TAB 400 MG TABLET 800 MG PO ×2 (08:37→16:36)
[2024-10-01] MEDS: DOCUSATE SOD 100 MG CAPSULE PO ×2 (08:37→19:53)
[2024-10-01 13:45] LABS: Basophils # (Auto) 0.0 Thou/mm3 (0.0-0.2); Basophils % (Auto) 0 % (0-2.5); Eosinophils # (Auto) 0.0 Thou/mm3 (0.0-0.5); Eosinophils % (Auto) 0 % (0-10); Hematocrit 36.7 % (36.0-46.0); Hemoglobin 12.2 g/dL (12.0-16.0); Immature Granulocytes Auto 0.15 Thou/mm3 (0.00-0.00); Lymphocytes # (Auto) 2.1 Thou/mm3 (1.0-4.8); Lymphocytes % (Auto) 19 % (10-50); Mean Corpuscular HGB Conc 33.2 g/dl (31.0-37.0); Mean Corpuscular Hemoglobin 28.3 pg (25.0-35.0); Mean Corpuscular Volume 85 fL (80-100); Monocytes # (Auto) 0.8 Thou/mm3 (0.0-0.8); Monocytes % (Auto) 8 % (0-12); Neutrophils # (Auto) 7.8 Thou/mm3 (1.8-7.7); Neutrophils % (Auto) 71 % (37-80); Nucleated Red Blood Cell # 0.00 Thou/mm3 (0.00-0.00); Nucleated Red Blood Cell % 0 /100 WBC (0); Platelet Count 135 Thou/mm3 (140-440); RDW Standard Deviation 47.2 fL (36.4-46.3); Red Blood Count 4.31 Miln/mm3 (4.00-5.20); White Blood Count 10.9 Thou/mm3 (3.6-11.0)
[2024-10-01] MEDS: ACETAMINOPHEN 325 MG TABLET 650 MG PO (19:53)
[2024-10-02 03:00] VITALS: BP 121/73; PULSE 61; RESP 18; TEMP 36.9; O2SAT 96
[2024-10-02] MEDS: IBUPROFEN TAB 400 MG TABLET 800 MG PO ×2 (03:06→13:35)
[2024-10-02 07:17] VITALS: BP 132/81; PULSE 64; RESP 16; TEMP 36.4; O2SAT 98
[2024-10-02] MEDS: DOCUSATE SOD 100 MG CAPSULE PO (09:49)
--- NOTE | 2024-10-02 09:53 | PD.LDPPPRG ---
Subjective Subjective Interval history: No complaints of pain. No dizziness. Bonding and breast-feeding. No complaints PIH symptoms Exam Vital Signs Temp Pulse Resp BP Pulse Ox O2 Del Method 97.5 F 64 16 132/81 H 98 Room Air 10/02/24 07:17 10/02/24 07:17 10/02/24 07:17 10/02/24 07:17 10/02/24 07:17 10/02/24 07:17 Narrative Exam Vital signs stable afebrile. Breasts are soft. Fundus firm below the umbilicus. Perineum intact no swelling. Small lochia. 2+ DTRs. Objective Labs 10/01/24 13:25 09/30/24 15:10 Labs: Laboratory Results - last 24 hr 10/01/24 13:25 WBC 10.9 D RBC 4.31 Hgb 12.2 Hct 36.7 MCV 85 MCH 28.3 MCHC 33.2 RDW Std Deviation 47.2 H Plt Count 135 L Neut % (Auto) 71 Lymph % (Auto) 19 Gooding % (Auto) 8 Eos % (Auto) 0 Baso % (Auto) 0 Neut # (Auto) 7.8 H Lymph # (Auto) 2.1 Gooding # (Auto) 0.8 Eos # (Auto) 0.0 Baso # (Auto) 0.0 Immature Gran # (Auto) 0.15 H Absolute Nucleated RBC 0.00 Immature Gran % 1 H Nucleated RBC % 0 Assessment & Plan Problem List (1) Normal labor and delivery: Status: Acute Assessment Comment Assessment comment: 24-hour Plan Comment Plan Comment: Discharge home with baby. Continue vitamins and iron. Tylenol ibuprofen for pain. Discussed comfort measures for her labial laceration. I discussed danger signs and symptoms and ER precautions with parameters. Discussed PIH precautions. And signs and symptoms of infection. No sex. Increase fluids. Return in 4 weeks visit Time Spent With Patient Time: Total time spent is greater than 50% in coordination of care (as documented) at patient's floor/unit and/or counseling patient:
--- NOTE | 2024-10-02 09:55 | PD.LDDS ---
DS: Providers Provider Date of admission: 09/30/24 17:01 Primary care physician: Physician No Primary/Family Admitting Provider: Lynn Moore CNM Attending Provider on Admission: Lynn Moore CNM Consults: 10/01/24 03:34 Referral Routine Comment: Attending Provider on DC: Lynn Moore CNM Discharging Provider: Lynn Moore CNM DS: Diagnosis Problem List Completed Was Problem List Reviewed/Reconciled?: Yes Summary/Hosp Course Brief History: 29-year-old 5 para 2 for induction of labor. Patient is been followed with Dr. Olsne at [facility]. She then transferred to [facility] OB clinic at 30 weeks. She has not had any problems with . Patient is O+, antibody screen negative, RPR nonreactive, rubella immune, hepatitis B negative, hep C negative, HIV negative, GC and Chlamydia were negative. Patient had an abnormal 1 hour GTT and 3-hour was normal. And GBS is negative. Blood pressures were high in the clinic today so patient was sent to labor and delivery for PIH workup. Blood pressures were improved in labor and delivery however patient lives more than 40 minutes from the hospital and so she was kept for induction. Denies social habits. Denies surgery. Denies chronic health Peripartum Data Delivery Method: Normal Vaginal Delivery Episiotomy Description: None Laceration Description: yes (R labial) complications: none Time Spent with Patient Time attestation: Total time spent providing and/or coordinating discharge services: Exam Vital Signs Temp Pulse Resp BP Pulse Ox O2 Del Method 97.5 F 64 16 132/81 H 98 Room Air 10/02/24 07:17 10/02/24 07:17 10/02/24 07:17 10/02/24 07:17 10/02/24 07:17 10/02/24 07:17 Discharge Plan Plan Patient Disposition: HOME (Self Care) Patient condition on transfer: Stable Prescriptions/Referrals Prescriptions/Med Rec: No Action No Known Home Medications Referrals: No Primary/Family,Physician [Primary Care Provider] - Patient/Caregiver Discharge Instructions Meds to Beds: No Discharge Activity: resume usual activities Print Language: Yoruba Activity Restrictions/Additional Instructions: Discharge home with baby. Continue vitamins and iron. Discussed sitz bath's and comfort measures for labial laceration. Discussed Tylenol or ibuprofen for pain. Discussed signs symptoms of infection. And ER precautions with parameters. And I discussed danger signs symptoms. Increase fluids. No sex. Return in 4 weeks visit Stand Alone Forms: Lorraine Award Info., Patient Portal Info Letter Discharge Order Discharge Orders: Discharge (Routine); Ordered 10/02/24 Ordered By: Lynn Moore Planned Discharge Date 10/02/24
[2024-10-02] MEDS: DIPHTH,PERTUSS(ACELL),TET VAC 0.5 ML SYR- ADULT IMi (13:36)
== END 2024-10-02 14:25 | disposition home or self-care (01) | DRG 807 ==
LOC: S4SX 19:34 → S4NX 10-01 10:20 → S4SX 10-03 05:53
PROVIDERS: Admitting Provider Advanced Practice Midwife; Visit Provider Advanced Practice Midwife
DX: O69.81X0 Labor and delivery complicated by cord around neck, without compression, not applicable or unspecified (principal); O70.0 First degree perineal laceration during delivery; Z37.0 Single live birth; Z3A.40 40 weeks gestation of pregnancy; Z23 Encounter for immunization
CPT/HCPCS: 36415; 59025; 59409; 76805; 76819; 80053; 81001; 82570; 83615; 84156; 84550; 85025; 85384; 85610; 85730; 86780; 86850; 86900; 86901; 90715; 94762; J2590; J2795; J3490; J7120; S0191; A9270

== ENCOUNTER 2024-11-14 11:07 | Outpatient (AMB) | payer BC, MEDICAID, SELFPAY ==
[2024-11-14 11:12] VITALS: BP 119/78; PULSE 65; RESP 18; TEMP 36.8; O2SAT 99; BMI 25.5
--- NOTE | 2024-11-14 11:12 | AMBOBPPN_ITS ---
Vital Signs 11/14/24 11:12 Height 1.68 m Height Method Stated Weight 72.121 kg Weight Measurement Method Standing Scale BMI 25.5 BP 119/78 Blood Pressure Source Automatic Cuff Blood Pressure Location Left Upper Arm Position Sitting Respiration 18 Pulse 65 Pulse Source Monitor Temp 98.2 F Temp Source Oral Pulse Oximetry (%) 99 Oxygen Delivery Method Room Air Allergies/Home Meds Allergies & Medications Allergies No Known Allergies Allergy (Verified 11/14/24 11:13) Medication Reconciliation desogestrel 0.15 mg-ethinyl estradiol 0.03 mg tablet 1 tab PO QDAY #168 tabs 11/14/24 [Rx] Intake Visit Data Collection New Patient or Established: Established Patient (seen at [facility] within 3 years) Reason for Visit:: pp Seen by Clinical Staff ONLY (RN/MA): No Manual Equipment Mechanic Required: No Do You Feel Safe at Home: Yes Authorities Contacted: N/A PCP or OBGYN visit in last 3 months: Yes Date of Last PCP or OBGYN visit: 10/02/24 Hx Now: No Are you currently on any form of Control: No Pain Present Currently: No Pain Scale Used: Thibodeaux-Mccormick/Numerical Pain scale:: 0 Smoking Status Smoking Status: Never smoker BROKERAGE OFFICE MANAGER: Past Medical History Past Medical History: No Hx Neurological Disorders, No Hx Breast Cancer, No Hx Cardiac Disorders, No Hx Cancer, No Hx Blood Disorders, No Hx Gastrointestinal Disorders, No Hx Renal Disease, No Hx Diabetes Mellitus Type 1 and No Hx Diabetes Mellitus Type 2 Questionnaires Covid-19 Vaccine Questionnaire Has patient been vacinated for Covid-19 Have you been vacinated for Covid-19: Yes Social History Living Situation History Lives With: Family Housing: House Tobacco History Smoking Status: Never smoker Second Hand Smoke Exposure: No Alcohol History Alcohol Intake: Never Domestic Abuse History Do You Feel Safe at Home: Yes EPDS - PP Depression Screening [place] Pospartum Depression Screen I have been able to laugh and see the funny side of things: (0) As much as I always could I have looked forward with enjoyment to things: (0) As much as I ever did I have blamed myself unnecessarily when things went wrong: (0) No, never I have been anxious or worried for no good reason: (0) No, not at all I have felt scared or panicky for no very good reason: (0) No, not at all Things have been getting on top of me: (0) No, I have been coping as well as ever I have been so unhappy that I have had difficulty sleeping: (0) No, not at all I have felt sad or miserable: (0) No, not at all I have been so unhappy that I have been crying: (0) No, never The thought of harming myself has occurred to me: (0) Never Total Score: EPDS Score: Referral is indicated for score of 9 or more, suicidal, or if provider believes patient is depressed regardless of score.: 0 EPDS completed yes Care OB Visit Log OB Flowsheet Initial Weight: Not Recorded Date -?-?-?-?-?-?--?-?-?-?-?-?- EGA Weight BP Alb Glu CTX Pres Fundal ht FHR Mov Dilation Station Effacement Hx Notes Visit Note 07/25/24 -?-?-?-?-?-?-?-?-?-?-?-?- 30w 3d 76.771 kg 116/70 absent cephalic 32 145 active 29-year-old 3 para 2 for OB transfer of care. 31 weeks 3 days today. Patient reports movement. Denies leaking or bleeding. Denies labor contractions. sono for growth NV, discuss ptl precaution. increase fluid. rtc 3 week obc 08/18/24 -?-?-?-?-?-?-?-?-?-?-?-?- 33w 6d 76.317 kg 123/75 absent cephalic 33 145 active fetus active, denies leaking,bleeding or UC, doing well discuss GDM diet. ptl precaution, increase fluid, fkc bid. rtc 2 week OBC, refused TDAP 09/01/24 -?-?-?-?-?-?-?-?-?-?-?-?- 35w 6d 78.188 kg 122/81 occasional cephalic 35 145 active Reports movement. Denies leaking. Denies bleeding. Denies cough contractions. Increased pressure. No other OB complaints today. Continue GDM diet. Discussed labor precautions and kick counts twice a day. GBS today. Return in 1 week OB check 09/06/24 -?-?-?-?-?-?-?-?-?-?-?-?- 36w 4d 79.549 kg 113/72 occasional cephalic 36 145 active Increased pressure. Baby active. Denies leaking. Denies bleeding. Denies contractions. Like for precaut ions discussed with patient. Comfort measures were present. Reviewed kick count twice daily. Discussed danger signs symptoms signs of ER precautions. Return week OB check 09/14/24 -?-?-?-?-?-?-?-?-?-?-?-?- 37w 5d 80.739 kg 132/80 occasional cephalic 37 147 active 1 -3 25 increased presure and mucous with some bleeding, fetus active, denies leaking or. irreg uc discuss labor pr ecaution, fkc bid. comfort measure and ER precaution 09/30/24 -?-?-?-?-?-?-?-?-?-?-?-?- 40w 0d 83.178 kg 138/81 occasional cephalic 39 145 active 3 -3 70 Increased pressure. Increased contractions. Reports good movement. Denies leaking or bleeding. She had a slight headache yesterday. sve: soft/3/post/-3 Discussed labor precautions. Discussed PIH precautions. Kick count twice a day. Sent patient over to labor and delivery for PIH eval and will schedule induction. Reviewed ER precautions with patient JOHNATHAN Calculator Estimated Delivery Date Method Current WG Current Estimate 09/30/24 LMP (Certain) 46w 3d Other Estimates 09/30/24 Ultrasound #1 46w 3d 09/25/24 Ultrasound #2 47w 1d Notes Visit Date: 09/14/24 Last Updated by: Lynn Moore CNM 29 yo LMP 12/24/20, EDC: 09/30/24, O+,abs-,rpr;;nr, rub imm, hbsag-,hiv-,HC-, gc/ct-, GBS-, carrier screen and NIPT- Visit Date: 09/06/24 Last Updated by: Lynn Moore CNM GBS- 09/06/24 Visit Date: 09/01/24 Last Updated by: Lynn Moore CNM 29 yo . LMP 12/24/24. EDC 09/30. 1s sono: 03/31/24: 13w6. edc: 09/30, 06/21: IUP 26w2. EDC: 09/30. ob panel: O+,abs-, rpr;;nr, rub imm, hbsag-,hiv-,hc-,gc/ct-, 1 hr high. 3 hr gtt: normal NIPT/AFP, carrier screen- Visit Date: 08/18/24 Last Updated by: Lynn Moore CNM 1 hr gtt elevated, 3 hr gtt: 1 value high/gdm diet Visit Date: 07/25/24 Last Updated by: Lynn Moore CNM 29 yo LMP 12/24/24. EDC 09/30/24. sono 03/31/24:13wk, EDC 09/30/24. O+,abs-,rpr;;nr, rub imm, hbsag-, hiv-,HC-, GC/CT-. rub IMM, A1c: 5.7, HPI Interval History: 29-year-old 5 para 3 for 6-week and pill start. Patient had a vaginal October 01, 2024. Patient was induced for elevated BPs. No meds. Patient had a baby boy that weighed 7 pounds 15 ounces. Bottle feeding. Patient reports that she is happy and no depression. Good family support. Siblings are adjusting. And father the baby is involved. Last menstrual period November 14, 2024. And patient does not having sex yet. Patient would like to start on control pills. She used pills in the past with good compliance Was or delivery considered high risk: Yes Delivery type: vaginal Was labor induced: yes (pih) Gestational age at delivery (weeks): 40 Delivery date: 10/01/24 Delivering provider: greg Moore Delivery complications: No Is patient infant: No Is patient sexually active: No Contraception planned: control pills Review of Systems Review of Systems ROS limited to current BROKERAGE OFFICE MANAGER complaints: Yes Exam Narrative Physical exam: Normal heart rate and rhythm. Lungs clear no wheezes. Abdomen is soft nontender. Uterus well involuted. Perineum is intact no lacerations. No swelling. Small lochia. Negative Homans' sign. 2+ DTRs. No edema no swelling. Breasts are soft General Limitations: no limitations General Appearance: alert, in no apparent distress, comfortable, cooperative, healthy appearing, well developed and well groomed Head Head exam: atraumatic, normocephalic and normal inspection ENT ENT exam: Present normal exam, normal oropharynx and mucous membranes moist Resp Respiratory exam: Present normal lung sounds bilaterally Card Cardiovascular exam: Present regular rate, normal rhythm and normal heart sounds Abdominal Abdominal exam: Present soft and normal bowel sounds Extremities Extremities exam: Present normal inspection and full ROM Psych Psychiatric exam: Present normal affect and normal mood Office Procedures OBC Clinic LOC & Office Proc's Nursing/Assessment Patient Status: Established Patient OB Clinic Nursing Assessment: Medication Reconciliation, Update PMH in EMR and Vital Signs OB Clinic Coordination of Care: Education Complex Pt/Fam, Consent,records obtained, informed consent, Lab and Imaging orders, Results/Orders obtained and Staff clarify orders Established Patient Charge Established Patient Point Assignment: 85 Established Patient Point Charge: EP Level 3 (80-115) Assessment & Plan Diagnosis / Problem List (1) Routine Follow-Up: (2) 6 weeks follow-up: Status: Acute (3) Family planning, BCP ( control pills) maintenance: Status: Acute Plan Ortho-Cept x 6 cycles. Start today. Condoms for 2 weeks. Reviewed ACHES. Discussed compliance and effectiveness. Patient to take a multivitamin with folic acid in it. And exercise 40 minutes a day. Return in 6 months for refill. Care Reviewed delivery summary and any complications: Yes Uterus involuted to: 3 below umb Perineal / incision healing noted: Yes Screened for depression: Yes Depression counseling provided: No Contraception planned: control pills Counseling on safe resumption of sexual activity: Yes Counseling on gradual excercise: Yes Discussed and concerns (describe), provided support: No Referred to dermatology specialist: No Counseled on good nutrition, hydration, and self care: Yes Reviewed vaccine status: No Chronic & current problems reconciled on problem list: Yes Infant care discussed; questions answered: feeding Follow up: routine/prn (ortho cept x 6, start today. condom x 2 week. review mehtod and side effect. rtc 6 month ) (FP) Tobacco Smoking Status: Never smoker
== END 2024-11-14 11:45 | disposition home or self-care (01) ==
LOC: HODSOBC 11:07
PROVIDERS: Supervising Provider Advanced Practice Midwife; Visit Provider Advanced Practice Midwife
DX: Z39.2 Encounter for routine postpartum follow-up (principal); Z30.011 Encounter for initial prescription of contraceptive pills
CPT/HCPCS: 99213; G0463